=== PATIENT | male | born 1950 | race Two or more races ===

== ENCOUNTER 2018-10-24 20:31 | Emergency (ER) | payer OTHER ==
[~2018-10-24] VITALS: Ht 172.7 cm; Wt 73.3 kg
[2018-10-24] MEDS: IV NS 0.9% 1,000 ML BAG IV ONE (21:08)
[2018-10-24 21:10] LABS: BASOPHILS % (AUTO) 1.3 % (0.0-2.0); EOSINOPHILS % (AUTO) 1.2 % (0.0-6.0); HEMATOCRIT 36 % (39-51); HEMOGLOBIN 11.5 g/dL (13.5-17.5); LYMPHOCYTES # (AUTO) 0.1 /CMM (0.8-4.8); LYMPHOCYTES % (AUTO) 17.2 % (20.0-44.0); MEAN CORPUSCULAR HGB CONC 32 g/dl (31.0-36.0); MEAN CORPUSCULAR VOLUME 85 fL (80-96); MONOCYTES % (AUTO) 1.8 % (2.0-12.0); NEUTROPHILS # (AUTO) 0.4 /CMM (1.8-8.9); NEUTROPHILS % (AUTO) 78.5 % (43.0-81.0); PLATELET COUNT (AUTO) 98 /CMM (150-450); RED BLOOD CELL COUNT(AUTO) 4.21 MIL/uL (4.5-6.0)
--- NOTE | 2018-10-24 21:15 | NUR ---
[id number] FROM HOME C/O GENERALIZED WEAKNESS X1 DAY & LACK OF ENERGY. PER RA, NOT EATING OR DRINKING ALL DAY. BS . PT AAOX3, VSS. RR EVEN & UNLABORED. DENIES CP, SOB, DIZZINESS, N/V/D @ THIS TIME. PT SEEN & EVAL'D BY DR. TERRELL. PLACED ON EARLY LEARNING TEACHER, SR. FAMILY @ BS & WILL CONT TO MONITOR.
[2018-10-24 21:22] LABS: WHITE BLOOD COUNT (AUTO) 0.5 K/uL (4.3-11.0)
[2018-10-24 21:28] LABS: ALANINE AMINOTRANSFERASE 15 U/L (12-78); ALKALINE PHOSPHATASE 79 U/L (46-116); ASPARTATE AMINOTRANSFERASE 27 U/L (15-37); BILIRUBIN,DIRECT 0.2 mg/dL (0.0-0.2); BILIRUBIN,TOTAL 0.3 mg/dL (0.2-1.0); CALCIUM, SERUM 9.3 mg/dL (8.5-10.1); CARBON DIOXIDE 34 mmol/L (21-32); CHLORIDE 96 mmol/L (98-107); CREATININE 2.1 mg/dL (0.6-1.3); POTASSIUM 2.9 mmol/L (3.5-5.1); SODIUM SERUM 135 mmol/L (136-145); TOTAL PROTEIN, SERUM 6.8 g/dL (6.4-8.2); UREA NITROGEN, BLOOD 59 mg/dL (7-18)
[2018-10-24 21:29] LABS: GLUCOSE 372 mg/dL (74-106)
[2018-10-24] MEDS ORDERED: Magnesium 1 GM/2 ML VIAL ONE (21:47)
[2018-10-24 21:50] LABS: BASOPHILS % (MANUAL) 1 % (0.0-2.0); EOSINOPHILS % (MANUAL) 1 % (0-4); MONOCYTES % (MANUAL) 4 % (0-11.0); NEUTROPHILS % (MANUAL) 85 (42-76)
[2018-10-24 21:51] LABS: LYMPHOCYTES % (MANUAL) 9 % (16-48)
[2018-10-24] MEDS ORDERED: Magnesium 1GM/D5W 100ML PREMIX 100 ML IV SCH (22:00)
[2018-10-24] MEDS: Magnesium 1 GM/2 ML VIAL IV ONE (22:10)
[2018-10-24] MEDS ORDERED: POTASSIUM CL. PREMIX PERIPHER. 100 ML ONE (22:18)
[2018-10-24] MEDS ORDERED: CEFEPIME 1 GM VIAL ONE (22:19)
[2018-10-24] MEDS: CEFEPIME 2 GM in IV D5W 50 ML IV ONE (22:34)
--- NOTE | 2018-10-24 22:45 | NUR ---
PT RESTING EYES CLOSED, EASILY AWAKEN BY VERBAL STIMULI. RR EVEN & UNLABORED, NO RESP DISTRESS NOTED. DENIES CP, SOB, DIZZINESS, N/V @ THIS TIME. FAMILY @ BS & WILL CONT TO MONITOR.
[2018-10-24] MEDS: POTASSIUM CHLORIDE 20 MEQ TAB.PRT.SR PO ONE (22:59)
[2018-10-24] MEDS: POTASSIUM CHLORIDE 10 MEQ/50 ML PREMIXED IVPB FOR PERIPHERAL LINE IV ONE (23:05)
--- NOTE | 2018-10-24 23:35 | NUR ---
REPORT REC'D FROM [facility] FOR [facility]. PT APPEARS TO BE RESTING COMFORTABLY. PT'S FAMILY ARE AT THE BEDSIDE. PT IS IN REVERSE ISOLATION. PT IS ON THE MONITOR AND CONTINUOUS PULSE OX. WILL CONTINUE TO MONITOR THE PT.
--- NOTE | 2018-10-24 23:49 | NUR ---
RECEIVED TRANSFER INFO FROM [facility]. PT WILL BE TRANSPORTED TO [facility] TO THE ER. ACCEPTED UNDER PHONE # FOR REPORT: ETA FOR TRANSPORT: [phone]
--- NOTE | 2018-10-25 00:30 | NUR ---
REPORT GIVEN TO CHARGE NURSE YOLANDA FOR ELIU.
[2018-10-25 00:31] VITALS: BP 109/61
--- NOTE | 2018-10-25 00:33 | NUR ---
PT APPEARS TO BE RESTING COMFORTABLY WITH NO S/S OF PAIN OR DISTRESS.
== END 2018-10-25 01:24 ==
LOC: ER 20:32
DX: N17.9 Acute kidney failure, unspecified (principal); R53.1 Weakness; E86.0 Dehydration; D69.6 Thrombocytopenia, unspecified; D70.1 Agranulocytosis secondary to cancer chemotherapy; E87.6 Hypokalemia; R73.9 Hyperglycemia, unspecified; I10 Essential (primary) hypertension; R56.9 Unspecified convulsions; E87.5 Hyperkalemia; Z85.028 Personal history of other malignant neoplasm of stomach
CPT/HCPCS: 36415; 71045; 80048; 80076; 82962; 84484; 85025; 85730; 87040 ×2; 87077; 87186; 93005 ×2; 96361; 96365; 96366; 96368; 99291; A4606; J0692 ×2; J3475; J3480; J7030 ×2; J7060 ×2